=== PATIENT | male | born 1950 ===

== ENCOUNTER 2016-02-27 02:42 | Emergency (ER) | payer SELFPAY ==
[2016-02-27] MEDS ORDERED: LACTATED RINGERS 1,000 ML ONE (03:11)
[2016-02-27 03:14] LABS: ABSOLUTE NEUTROPHIL COUNT 11.1 K/mm3 (1.8-7.7); BASO # 0.1 K/mm3 (0.0-0.2); BASO % 0.4 % (0.2-1.0); EOS # 0.1 (0.0-0.5); EOS % 0.5 % (0.9-2.9); HEMATOCRIT 40.4 % (32.0-52.0); HEMOGLOBIN 13.2 gm/l (14.0-18.0); IMM NEUT% 0.3 % (0-1); LYMPH % 8.1 % (15-45); MEAN CELL VOLUME 99.8 fl (80.0-94.0); MEAN CORPUSCULAR HEMOGLOBIN 32.6 pg (27.0-31.0); MEAN CORPUSCULAR HGB CONC 32.7 g/dl (33.0-37.0); MEAN PLATELET VOLUME 9.6 fl (7.4-10.4); MONO # 0.5 (0.0-0.8); MONO % 3.8 % (4-12); NEUT % 86.9 % (43-75); PLATELET COUNT 288 K/mm3 (130-400); RED CELL DISTRIBUTION WIDTH 13.2 % (11.5-14.5)
[2016-02-27 03:37] LABS: ALB/GLOB RATIO 1.3 (>1.0); ALBUMIN 4.3 gm/dL (3.5-5.7); CALCIUM 8.7 mg/dL (8.6-10.3)
[2016-02-27 03:39] LABS: TROPONIN I 0.01 ng/ml (0.0-0.06)
[2016-02-27] MEDS ORDERED: ACETAMINOPHEN 500 MG TABLET ONE (05:05)
--- NOTE | 2016-02-27 08:01 | RAD ---
02/27/2016 7:51 AM CHEST - 2 VIEWS History: Cough Comparison: 10/30/2013 Findings: Two views of the chest are obtained. The lungs demonstrate loculated effusion versus pleural thickening along the right base. The effusion is seen on prior study has had mild improvement in comparison. Compressive atelectasis is noted underlying pneumonia would be difficult to exclude. Otherwise lungs are clear. The cardiomediastinal silhouette is unremarkable.. The osseous structures are intact.. There may be some possible retraction along the right lateral ribs in the area of the loculated effusion/density IMPRESSION: Improvement in the patient's effusion/pleural based density in comparison to prior study. Other findings as above.
== END 2016-02-27 05:52 | disposition home or self-care (01) ==
LOC: ED 02:42
DX: J98.4 Other disorders of lung (principal); R06.02 Shortness of breath; F17.210 Nicotine dependence, cigarettes, uncomplicated
CPT/HCPCS: 83605; 85379; 85025; 82553; 87040; 80053; 84484; 71020; 87804; 99284; 96360; 96361; 99283; A9270; J7120